=== PATIENT | female | born 1955 | race Two or more races ===

== ENCOUNTER 2020-03-30 07:00 | Inpatient (IN) | payer OTHER ==
[~2020-03-30] VITALS: Ht 147.3 cm; Wt 86.2 kg
[2020-03-30] MEDS ORDERED: PAXIL20 MG PO (09:12)
[2020-03-30] MEDS ORDERED: ATIVAN0.5 M1 PO (09:12)
[2020-03-30] MEDS ORDERED: NASAL MIST126 ML (09:13)
[2020-03-30] MEDS ORDERED: VITAMIN D310 MCG/1 M PO (09:13)
[2020-03-30] MEDS ORDERED: FOSAMAX PO (09:13)
[2020-04-06] MEDS ORDERED: ZANAFLEX2 MG (11:42)
[2020-04-06] MEDS ORDERED: ALENDRONATE SOD70 MG (11:42)
[2020-04-08] MEDS ORDERED: XARELTO10 MG PO (06:39)
[2020-04-08] MEDS ORDERED: OXYC1TAB9 PO (06:39)
[2020-04-08] MEDS ORDERED: BACTRIM DS TAB1 EACH PO (06:39)
[2020-04-08] MEDS ORDERED: INTEGRA PLUS C1 EACH PO (06:39)
== END 2020-04-08 18:16 | DRG 470 ==
LOC: EDSTATUS 07:00 → O/R 04-06 05:51 → SURG 04-06 05:51 → EDSTATUS 04-06 07:00 → CIR.AMB 04-06 07:00 → SURH 04-06 07:00 → SURG 04-06 14:50
PROVIDERS: ADMIT Orthopaedic Surgery Sports Medicine; ATTEND Orthopaedic Surgery Sports Medicine
PROC: 0SRC0J9 Replacement of Right Knee Joint with Synthetic Substitute, Cemented, Open Approach (ICD-10-PCS; principal; 2020-04-06 11:45)
DX: M17.11 Unilateral primary osteoarthritis, right knee (principal); Z96.651 Presence of right artificial knee joint; I10 Essential (primary) hypertension